=== PATIENT | male | born 1985 | race Caucasian/White ===

== ENCOUNTER 2023-03-19 20:45 | Emergency (ER) | payer OTHER ==
[~2023-03-19] VITALS: Ht 165.1 cm; Wt 77.1 kg
[2023-03-19] MEDS ORDERED: IV D5/ 0.9% NACL 1,000 ML IV ONE (21:15)
[2023-03-19] MEDS ORDERED: BUPR8TAB4 SL (21:16)
[2023-03-19] MEDS ORDERED: DOXE50CA4 PO (21:16)
[2023-03-19] MEDS ORDERED: BENZ2TAB7 PO (21:16)
[2023-03-19] MEDS ORDERED: PRAZ1CAP5 PO (21:16)
[2023-03-19] MEDS ORDERED: OLAN10TA3 PO (21:16)
[2023-03-19] MEDS ORDERED: PHEN97.22 PO (21:16)
[2023-03-19 21:35] LABS: BASOPHILS % (AUTO) 0.4 % (0.0-2.0); EOSINOPHILS % (AUTO) 0.8 % (0.0-7.0); HEMATOCRIT 38.7 % (36.7-47.1); HEMOGLOBIN 13.2 g/dL (12.5-16.3); LYMPHOCYTES # (AUTO) 2.1 K/uL (0.8-4.8); LYMPHOCYTES % (AUTO) 36.1 % (20.5-51.5); MEAN CORPUSCULAR HEMOGLOBIN 28.5 uug (23.8-33.4); MEAN CORPUSCULAR HGB CONC 34 g/dL (32.5-36.3); MEAN CORPUSCULAR VOLUME 83.5 fL (73.0-96.2); MONOCYTES # (AUTO) 0.6 K/uL (0.1-1.30); MONOCYTES % (AUTO) 9.8 % (0.0-11.0); NEUTROPHILS % (AUTO) 52.9 % (38.5-71.5); PLATELET COUNT (AUTO) 218 K/uL (152-348); RED BLOOD CELL COUNT(AUTO) 4.63 MIL/uL (4.06-5.63); RED CELL DISTRIBUTION WIDTH 12.4 % (12.1-16.2); WHITE BLOOD COUNT (AUTO) 5.7 K/uL (3.6-10.2)
[2023-03-19 21:43] LABS: *BILIRUBIN,URIN NEGATIVE (NEGATIVE); *BLOOD, URINE NEGATIVE (NEGATIVE); *CLARITY,URINE CLEAR (CLEAR); *COLOR,URINE YELLOW (YELLOW); *KETONES,URINE 1+ (NEGATIVE); *PROTEIN,URINE NEGATIVE (NEGATIVE); LEUKOCYTE ESTERASE ,URINE NEGATIVE (NEGATIVE); NITRITE, URINE NEGATIVE (NEGATIVE); UGLUCOSE NEGATIVE (NEGATIVE)
[2023-03-19 21:49] LABS: DIFFERENTIAL COMMENT 1
[2023-03-19 21:50] LABS: ETHANOL 3 MG/DL (0-10)
[2023-03-19 21:57] LABS: *AMPHETAMINE, URINE NEGATIVE (NEGATIVE); *BARBITURATE, URINE POSITIVE (NEGATIVE); *BENZODIAZEPINE, URINE POSITIVE (NEGATIVE); *CANNABINOID, URINE NEGATIVE (NEGATIVE); *COCCAINE, URINE POSITIVE (NEGATIVE); *OPIATE, URINE NEGATIVE (NEGATIVE); *PHENCYCLIDINE SCREEN,URINE NEGATIVE (NEGATIVE); FENTANYL, URINE NEGATIVE (NEGATIVE)
[2023-03-19 21:59] LABS: THYROID STIMULATING HORMONE 1.057 mIU/mL (0.358-3.740)
[2023-03-19 22:01] LABS: RBC,URINE NONE SEEN /HPF (0-3); WBC,URINE 0-3 /HPF (0-3)
[2023-03-19 22:02] LABS: BACTERIA,URINE FEW /HPF (NONE SEEN); SQUAMOUS EPITHELIAL CELL,UR FEW /HPF (NONE SEEN); URINE AMORPHOUS URATE FEW /HPF
[2023-03-19 22:14] LABS: CALCIUM 8.7 mg/dL (8.5-10.1); CARBON DIOXIDE 26 mmol/L (21-32); CHLORIDE 104 mmol/L (98-107); CREATININE 0.9 mg/dL (0.6-1.3); GLUCOSE 106 mg/dL (74-106); POTASSIUM 3.6 mmol/L (3.5-5.1); SODIUM SERUM 140 mmol/L (136-145); UREA NITROGEN, BLOOD 10 mg/dL (7-18)
[2023-03-19 22:19] LABS: ALANINE AMINOTRANSFERASE 21 U/L (16-63); ALBUMIN 3.9 g/dL (3.4-5.0); ALKALINE PHOSPHATASE 117 U/L (50-136); ASPARTATE AMINOTRANSFERASE 20 U/L (15-37); BILIRUBIN,DIRECT 0.1 mg/dL (0.0-0.2); BILIRUBIN,TOTAL 0.3 mg/dL (0.2-1.0); TOTAL PROTEIN, SERUM 7.5 g/dL (6.4-8.2)
[2023-03-19 22:20] LABS: ACETAMINOPHEN < 10.0 ug/mL (10-30)
[2023-03-19 22:44] VITALS: BP 124/84; TEMP 98.4; O2SAT 98
[2023-03-20] MEDS ORDERED: diphenhydrAMINE 50 MG/1 ML VIAL IM ONE (16:00)
[2023-03-20] MEDS ORDERED: OLANZAPINE 10 MG VIAL IM ONE (16:00)
[2023-03-21] MEDS ORDERED: BUPR-53 PO (10:03)
== END 2023-03-19 22:45 | disposition left against medical advice (07) ==
LOC: ER 20:45
DX: S09.90XA Unspecified injury of head, initial encounter (principal); R41.0 Disorientation, unspecified; R07.89 Other chest pain; F17.210 Nicotine dependence, cigarettes, uncomplicated; Z71.6 Tobacco abuse counseling; Z79.899 Other long term (current) drug therapy; X58.XXXA Exposure to other specified factors, initial encounter; Y93.89 Activity, other specified; Y92.89 Other specified places as the place of occurrence of the external cause; Y99.8 Other external cause status
CPT/HCPCS: 80076; 80048; 81001; 84443; 85025; 36415; 71045; 70450; 72125; 99284; 80299; 80320; 80307; 99406; J7040; A4663; G0480

== ENCOUNTER 2023-03-20 14:19 | Inpatient (IN) | payer OTHER ==
[~2023-03-20] VITALS: Ht 177.8 cm; Wt 77.1 kg
[~2023-03-20 14:19] MED LIST: BENZ2TAB7 PO; BUPR8TAB4 SL; DOXE50CA4 PO; OLAN10TA3 PO; PHEN97.22 PO; PRAZ1CAP5 PO
[2023-03-20] MEDS ORDERED: IV NORMAL SALINE 1000 ML BAG IV ONE (14:45)
[2023-03-20 15:45] LABS: AMMONIA < 10 umol/L (11-32)
[2023-03-20 15:50] LABS: ALANINE AMINOTRANSFERASE 23 U/L (16-63); ALBUMIN 4.1 g/dL (3.4-5.0); ALKALINE PHOSPHATASE 114 U/L (50-136); ASPARTATE AMINOTRANSFERASE 20 U/L (15-37); BILIRUBIN,DIRECT 0.1 mg/dL (0.0-0.2); BILIRUBIN,TOTAL 0.4 mg/dL (0.2-1.0); CARBON DIOXIDE 27 mmol/L (21-32); CHLORIDE 101 mmol/L (98-107); GLUCOSE 99 mg/dL (74-106); POTASSIUM 3.9 mmol/L (3.5-5.1); SODIUM SERUM 140 mmol/L (136-145); TOTAL PROTEIN, SERUM 7.3 g/dL (6.4-8.2); UREA NITROGEN, BLOOD 11 mg/dL (7-18)
[2023-03-20 15:51] LABS: *BILIRUBIN,URIN 1+ (NEGATIVE); *BLOOD, URINE NEGATIVE (NEGATIVE); *CLARITY,URINE CLEAR (CLEAR); *COLOR,URINE YELLOW (YELLOW); *KETONES,URINE 2+ (NEGATIVE); *PROTEIN,URINE NEGATIVE (NEGATIVE); *UROBILINOGEN,URINE 0.2 E.U./dl (NORMAL); LEUKOCYTE ESTERASE ,URINE NEGATIVE (NEGATIVE); NITRITE, URINE NEGATIVE (NEGATIVE); PH,URINE 6.5 (5.0-8.0); UGLUCOSE NEGATIVE (NEGATIVE)
[2023-03-20 15:53] LABS: ACETAMINOPHEN < 10.0 ug/mL (10-30)
[2023-03-20 15:57] LABS: BASOPHILS % (AUTO) 0.3 % (0.0-2.0); EOSINOPHILS % (AUTO) 0.1 % (0.0-7.0); HEMOGLOBIN 13.5 g/dL (12.5-16.3); LYMPHOCYTES # (AUTO) 1.8 K/uL (0.8-4.8); LYMPHOCYTES % (AUTO) 14.7 % (20.5-51.5); MEAN CORPUSCULAR HEMOGLOBIN 28.3 uug (23.8-33.4); MEAN CORPUSCULAR HGB CONC 34 g/dL (32.5-36.3); MEAN CORPUSCULAR VOLUME 83.9 fL (73.0-96.2); MONOCYTES # (AUTO) 1.1 K/uL (0.1-1.30); NEUTROPHILS # (AUTO) 9.1 K/uL (1.8-8.9); NEUTROPHILS % (AUTO) 75.9 % (38.5-71.5); PLATELET COUNT (AUTO) 197 K/uL (152-348); RED BLOOD CELL COUNT(AUTO) 4.76 MIL/uL (4.06-5.63); RED CELL DISTRIBUTION WIDTH 12.7 % (12.1-16.2)
[2023-03-20 15:58] LABS: THYROID STIMULATING HORMONE 1.028 mIU/mL (0.358-3.740)
[2023-03-20 16:03] LABS: DIFFERENTIAL COMMENT 1; ETHANOL < 3 MG/DL (0-10)
[2023-03-20 16:43] LABS: BACTERIA,URINE NONE SEEN /HPF (NONE SEEN); WBC,URINE 0-3 /HPF (0-3)
[2023-03-20 16:44] LABS: RBC,URINE NONE SEEN /HPF (0-3); SQUAMOUS EPITHELIAL CELL,UR FEW /HPF (NONE SEEN)
[2023-03-20] MEDS ORDERED: ONDANSETRON 4 MG/2 ML VIAL IV PRN (17:00)
[2023-03-20] MEDS ORDERED: ACETAMINOPHEN 325 MG TABLET PO PRN (17:00)
[2023-03-20] MEDS ORDERED: MAGNESIUM HYDROXIDE 30 ML LIQUID UDC PO PRN (17:00)
[2023-03-20] MEDS ORDERED: IV D5 1/2 NS 1000 ML 1,000 ML IV PRN (17:15)
[2023-03-20] MEDS ORDERED: HALOPERIDOL 0.5 MG TABLET PO PRN ×2 (17:45)
[2023-03-20] MEDS: BUPRENORPHINE HCL 2 MG TAB.SUBL SL SCH (17:50)
[2023-03-20 23:41] LABS: *AMPHETAMINE, URINE NEGATIVE (NEGATIVE); *BARBITURATE, URINE POSITIVE (NEGATIVE); *BENZODIAZEPINE, URINE POSITIVE (NEGATIVE); *CANNABINOID, URINE NEGATIVE (NEGATIVE); *COCCAINE, URINE POSITIVE (NEGATIVE); *OPIATE, URINE NEGATIVE (NEGATIVE); *PHENCYCLIDINE SCREEN,URINE NEGATIVE (NEGATIVE); FENTANYL, URINE NEGATIVE (NEGATIVE)
[2023-03-20 23:53] VITALS: BP 108/78; TEMP 97.9; O2SAT 100
[2023-03-20] MEDS ORDERED: HALOPERIDOL 5 MG TABLET ONE (23:59)
[2023-03-21] MEDS ORDERED: HALOPERIDOL LACTATE 5 MG/1 ML VIAL IM PRN (01:30)
[2023-03-21 04:15] VITALS: BP 107/73; TEMP 97.8; O2SAT 98
[2023-03-21] MEDS ORDERED: HALOPERIDOL 5 MG TABLET PO PRN (06:00)
[2023-03-21] MEDS ORDERED: PANTOPRAZOLE SODIUM 40 MG TABLET.DR PO SCH (07:00)
[2023-03-21 08:00] LABS: BASOPHILS % (AUTO) 0.3 % (0.0-2.0); EOSINOPHILS % (AUTO) 0.5 % (0.0-7.0); HEMATOCRIT 37.8 % (36.7-47.1); LYMPHOCYTES # (AUTO) 2.4 K/uL (0.8-4.8); LYMPHOCYTES % (AUTO) 34.8 % (20.5-51.5); MEAN CORPUSCULAR HGB CONC 34 g/dL (32.5-36.3); MEAN CORPUSCULAR VOLUME 84.3 fL (73.0-96.2); MONOCYTES # (AUTO) 0.6 K/uL (0.1-1.30); MONOCYTES % (AUTO) 8.2 % (0.0-11.0); NEUTROPHILS # (AUTO) 3.9 K/uL (1.8-8.9); NEUTROPHILS % (AUTO) 56.2 % (38.5-71.5); PLATELET COUNT (AUTO) 204 K/uL (152-348); RED BLOOD CELL COUNT(AUTO) 4.48 MIL/uL (4.06-5.63); RED CELL DISTRIBUTION WIDTH 12.5 % (12.1-16.2)
[2023-03-21 08:12] LABS: DIFFERENTIAL COMMENT 1
[2023-03-21 08:15] LABS: CALCIUM 8.4 mg/dL (8.5-10.1); CREATININE 0.8 mg/dL (0.6-1.3); PHOSPHOROUS 3.4 mg/dL (2.5-4.9); POTASSIUM 3.3 mmol/L (3.5-5.1)
[2023-03-21] MEDS: BUPRENORPHINE HCL 2 MG TAB.SUBL SL SCH (08:18)
[2023-03-21 08:36] LABS: THYROID STIMULATING HORMONE 0.979 mIU/mL (0.358-3.740)
[2023-03-21] MEDS ORDERED: POTASSIUM CHLORIDE 20 MEQ TAB.PRT.SR PO ONE (09:15)
[2023-03-21] MEDS ORDERED: buPROPion XL 150 MG TAB.SR.24H PO SCH (09:30)
[2023-03-21] MEDS ORDERED: BUPR-53 PO (10:03)
== END 2023-03-21 12:30 | disposition other institution (70) | DRG 92 ==
LOC: ER 14:21 → TELE3 18:00
PROVIDERS: ADMIT Nurse Practitioner Family; ATTEND Nurse Practitioner Family
DX: G92.8 Other toxic encephalopathy (principal); F14.13 Cocaine abuse, unspecified with withdrawal; T42.4X5A Adverse effect of benzodiazepines, initial encounter; Y92.199 Unspecified place in other specified residential institution as the place of occurrence of the external cause; F19.10 Other psychoactive substance abuse, uncomplicated; E87.6 Hypokalemia; D72.829 Elevated white blood cell count, unspecified; F32.9 Major depressive disorder, single episode, unspecified; F41.1 Generalized anxiety disorder; G47.00 Insomnia, unspecified; Z87.891 Personal history of nicotine dependence
CPT/HCPCS: 36415; 71045; 83735; 84100; 84443; 85025; 93005; 94640; A4663; C1758; G0378; G0480; J7040

== ENCOUNTER 2023-07-24 04:07 | Emergency (ER) | payer OTHER ==
[~2023-07-24] VITALS: Ht 180.3 cm; Wt 77.1 kg
[~2023-07-24 04:07] MED LIST changes: -BENZ2TAB7 PO; +BUPR-53 PO; -OLAN10TA3 PO; -PHEN97.22 PO; -PRAZ1CAP5 PO
[2023-07-24] MEDS ORDERED: IV NORMAL SALINE 1000 ML BAG IV ONE ×2 (04:30→05:15)
[2023-07-24] MEDS ORDERED: ACETAMINOPHEN ES 500 MG TABLET PO ONE (04:30)
[2023-07-24] MEDS ORDERED: LABETALOL HCL 100 MG/20 ML VIAL IV ONE ×2 (04:30→05:15)
[2023-07-24] MEDS ORDERED: PHENOBARBITAL SODIUM 130 MG/1 ML DISP.SYRIN IV ONE ×2 (05:15→11:00)
[2023-07-24] MEDS ORDERED: LABETALOL HCL 100 MG/20 ML VIAL ONE (05:41)
[2023-07-24] MEDS ORDERED: PHENOBARBITAL SODIUM 130 MG/1 ML DISP.SYRIN ONE ×2 (05:41→11:04)
[2023-07-24 05:49] LABS: BASOPHILS % (AUTO) 0.1 % (0.0-2.0); EOSINOPHILS % (AUTO) 0.1 % (0.0-7.0); HEMATOCRIT 34.9 % (36.7-47.1); HEMOGLOBIN 11.4 g/dL (12.5-16.3); MEAN CORPUSCULAR HEMOGLOBIN 28.1 uug (23.8-33.4); MEAN CORPUSCULAR HGB CONC 33 g/dL (32.5-36.3); MEAN CORPUSCULAR VOLUME 85.7 fL (73.0-96.2); MONOCYTES # (AUTO) 0.6 K/uL (0.1-1.30); MONOCYTES % (AUTO) 4.6 % (0.0-11.0); NEUTROPHILS # (AUTO) 10.9 K/uL (1.8-8.9); NEUTROPHILS % (AUTO) 87.2 % (38.5-71.5); PLATELET COUNT (AUTO) 348 K/uL (152-348); RED BLOOD CELL COUNT(AUTO) 4.07 MIL/uL (4.06-5.63); RED CELL DISTRIBUTION WIDTH 14.2 % (12.1-16.2); WHITE BLOOD COUNT (AUTO) 12.5 K/uL (3.6-10.2)
[2023-07-24 05:50] LABS: DIFFERENTIAL COMMENT 1
[2023-07-24 06:00] LABS: CALCIUM 8.9 mg/dL (8.5-10.1); CARBON DIOXIDE 24 mmol/L (21-32); CHLORIDE 101 mmol/L (98-107); CREATININE 0.9 mg/dL (0.6-1.3); GLUCOSE 108 mg/dL (74-106); POTASSIUM 4.3 mmol/L (3.5-5.1); SODIUM SERUM 135 mmol/L (136-145); UREA NITROGEN, BLOOD 9 mg/dL (7-18)
[2023-07-24 06:12] LABS: THYROID STIMULATING HORMONE 0.894 mIU/mL (0.358-3.740)
[2023-07-24 06:18] LABS: ALANINE AMINOTRANSFERASE 24 U/L (16-63); ALBUMIN 3.7 g/dL (3.4-5.0); ALKALINE PHOSPHATASE 103 U/L (50-136); ASPARTATE AMINOTRANSFERASE 23 U/L (15-37); BILIRUBIN,DIRECT 0.1 mg/dL (0.0-0.2); BILIRUBIN,TOTAL 0.3 mg/dL (0.2-1.0); TOTAL PROTEIN, SERUM 7.4 g/dL (6.4-8.2)
[2023-07-24 06:19] LABS: ACETAMINOPHEN < 10.0 ug/mL (10-30)
[2023-07-24 06:31] LABS: ETHANOL < 3 MG/DL (0-10)
[2023-07-24] MEDS ORDERED: ASPIRIN 81 MG TAB.CHEW PO ONE (06:45)
[2023-07-24 07:03] LABS: *BILIRUBIN,URIN NEGATIVE (NEGATIVE); *CLARITY,URINE CLEAR (CLEAR); *COLOR,URINE YELLOW (YELLOW); *KETONES,URINE NEGATIVE (NEGATIVE); *PROTEIN,URINE NEGATIVE (NEGATIVE); *UROBILINOGEN,URINE 0.2 E.U./dl (NORMAL); LEUKOCYTE ESTERASE ,URINE NEGATIVE (NEGATIVE); NITRITE, URINE NEGATIVE (NEGATIVE); PH,URINE 6.5 (5.0-8.0); UGLUCOSE NEGATIVE (NEGATIVE)
[2023-07-24 07:44] LABS: *BLOOD, URINE TRACE (NEGATIVE)
[2023-07-24] MEDS ORDERED: ASPIRIN 81 MG TAB.CHEW ONE (08:15)
[2023-07-24 08:25] LABS: *AMPHETAMINE, URINE POSITIVE (NEGATIVE); *BARBITURATE, URINE POSITIVE (NEGATIVE); *BENZODIAZEPINE, URINE POSITIVE (NEGATIVE); *CANNABINOID, URINE NEGATIVE (NEGATIVE); *COCCAINE, URINE POSITIVE (NEGATIVE); *OPIATE, URINE NEGATIVE (NEGATIVE); *PHENCYCLIDINE SCREEN,URINE NEGATIVE (NEGATIVE); FENTANYL, URINE NEGATIVE (NEGATIVE)
[2023-07-24 08:32] LABS: RBC,URINE 0-3 /HPF (0-3); WBC,URINE 0-3 /HPF (0-3)
[2023-07-24] MEDS ORDERED: NICOTINE 14 MG/24HR PATCH TD SCH (09:00)
[2023-07-24] MEDS ORDERED: PHENOBARBITAL SODIUM 130 MG/1 ML DISP.SYRIN IM ONE (11:00)
[2023-07-24] MEDS ORDERED: BUPRENORPHINE HCL 2 MG TAB.SUBL SL ONE ×4 (11:00→12:25)
[2023-07-24 15:32] VITALS: BP 117/84; O2SAT 95
== END 2023-07-24 15:15 ==
LOC: ER 04:08
DX: R00.0 Tachycardia, unspecified (principal); R79.89 Other specified abnormal findings of blood chemistry; F11.10 Opioid abuse, uncomplicated; Z71.6 Tobacco abuse counseling; Z88.8 Allergy status to other drugs, medicaments and biological substances; Z79.899 Other long term (current) drug therapy
CPT/HCPCS: 80076; 80048; 81001; 82550; 84443; 85025; 85379; 84484 ×3; 36415; 93005; 99285; 96361; 96374; 96375; 96376; 80299; 80320; 80307; J3490; J2560 ×2; J7040; A4606; A4663; G0480